=== PATIENT | male | born 1995 ===

== ENCOUNTER 2022-01-02 00:01 | Emergency (ER) | payer SELFPAY ==
--- NOTE | 2022-01-02 00:24 | NUR ---
Evan hindslina in ED - 01/02/22 at 0043 by OLIVA ABDIEL WAS CONTACTED DUE TO PATIENT LEFT ER AMA AFTER POLICE BROUGHT HIM ON A .
--- NOTE | 2022-01-02 00:43 | NUR ---
PATIENT LEFT ER. ABDIEL WAS NOTIFIED.
== END 2022-01-02 00:45 | disposition left against medical advice (07) ==
LOC: ER 00:02
DX: Z00.8 Encounter for other general examination (principal); Z53.21 Procedure and treatment not carried out due to patient leaving prior to being seen by health care provider